=== PATIENT | female | born 1965 | race Caucasian/White ===

== ENCOUNTER 2017-03-01 11:36 | Emergency (ER) | payer OTHER ==
[~2017-03-01] VITALS: Ht 162.6 cm; Wt 87.1 kg
[2017-03-01 12:39] LABS: HEMATOCRIT 37.4 % (36.0-46.0); MCH 28.7 PG (29.0-34.0); MCHC 32.6 G/DL (30.0-36.0); MEAN PLAT.VOLUME 10.1 uM^3 (9.5-12.4); PLATELET COUNT 231 K/uL (156-360); RBC DIS.WIDTH-CV 12.1 % (11.8-14.6); RBC DIS.WIDTH-SD 38.7 % (39-53); RED BLOOD COUNT 4.25 M/uL (3.80-5.20); WHITE BLOOD COUNT 6.5 K/uL (4.1-10.2)
[2017-03-01 12:46] LABS: CHLORIDE 106 mEq/L (99-109); POTASSIUM 3.6 mEq/L (3.7-5.4); SODIUM 141 mEq/L (136-147)
[2017-03-01 12:49] LABS: GLUCOSE 95 mg/dL (70-99)
[2017-03-01 12:50] LABS: ANION GAP 13 MEQ/L (2-14)
[2017-03-01 12:51] LABS: TOTAL BILIRUBIN 0.3 mg/dL (0.0-1.0)
[2017-03-01 12:52] LABS: ALKALINE PHOSPHATASE 82 IU/L (3-129); GFR ESTIMATE (CALCULATED) > 59 mL/min/
[2017-03-01 12:53] LABS: UREA NITROGEN (BUN) 19 mg/dL (9-23)
[2017-03-01 12:56] LABS: LIPASE 35 U/L (1.0-51.0)
[2017-03-01 14:44] LABS: ADD MIUA? NO; BILIRUBIN NEGATIVE; BLOOD NEGATIVE; COLOR YELLOW ((YELLOW)); GLUCOSE (STRIP) NEGATIVE; KETONES 5; LEUKOCYTES NEGATIVE; NITRITE NEGATIVE; PROTEIN (STRIP) NEGATIVE; SPECIFIC GRAVITY 1.018 (1.000-1.030); UROBILINOGEN 0.2 MG/DL (0.2-1.0)
[2017-03-01] MEDS ORDERED: ZOFRAN ODT4 MG PO (15:16)
[2017-03-01] MEDS ORDERED: BENTYL10 MG PO (15:16)
[2017-03-01 15:35] VITALS: BP 129/95
== END 2017-03-01 15:59 | disposition home or self-care (01) ==
LOC: EME 11:36
PROVIDERS: Nurse Practitioner Family
DX: R10.9 Unspecified abdominal pain (principal); R11.0 Nausea; M54.5 Low back pain; R19.7 Diarrhea, unspecified; Z85.038 Personal history of other malignant neoplasm of large intestine; Z90.49 Acquired absence of other specified parts of digestive tract
CPT/HCPCS: 74177; 80053; 81003; 83690; 85027; 99281; 99285; J2270; J2405; J7030

== ENCOUNTER 2017-05-11 13:17 | Emergency (ER) | payer OTHER ==
[~2017-05-11] VITALS: Ht 162.6 cm; Wt 81.8 kg
[~2017-05-11 13:17] MED LIST: BENTYL10 MG PO; ZOFRAN ODT4 MG PO
[2017-05-11 14:25] LABS: ADD MIUA? YES; BILIRUBIN NEGATIVE; BLOOD SMALL; COLOR YELLOW ((YELLOW)); GLUCOSE (STRIP) NEGATIVE; KETONES 5; LEUKOCYTES NEGATIVE; NITRITE NEGATIVE; PROTEIN (STRIP) NEGATIVE; SPECIFIC GRAVITY 1.026 (1.000-1.030); UROBILINOGEN 0.2 MG/DL (0.2-1.0)
[2017-05-11 14:34] LABS: HEMATOCRIT 42.8 % (36.0-46.0); MCH 29.5 PG (29.0-34.0); MCHC 33.9 G/DL (30.0-36.0); MEAN PLAT.VOLUME 10.2 uM^3 (9.5-12.4); PLATELET COUNT 243 K/uL (156-360); RBC DIS.WIDTH-CV 12.4 % (11.8-14.6); RBC DIS.WIDTH-SD 39.5 % (39-53); RED BLOOD COUNT 4.92 M/uL (3.80-5.20); WHITE BLOOD COUNT 5.7 K/uL (4.1-10.2)
[2017-05-11 14:44] LABS: TROP-I INTERPRETATION NEGATIVE; TROPONIN-I < 0.01 ng/mL (0.0-0.30)
[2017-05-11 14:45] LABS: BACTERIA NONE SEEN /HPF; CALCIUM OXALATE CRYSTALS 4+ /HPF; EPITHELIAL CELLS RARE /HPF; MUCUS TRACE /LPF; RED BLOOD CELLS 0-5 /HPF (0-5); UCUL ADDED? NO; WHITE BLOOD CELLS 0-5 /HPF (0-5)
[2017-05-11 14:45] LABS: CHLORIDE 104 mEq/L (99-109); POTASSIUM 3.9 mEq/L (3.7-5.4); SODIUM 138 mEq/L (136-147)
[2017-05-11 14:47] LABS: GLUCOSE 100 mg/dL (70-99)
[2017-05-11 14:49] LABS: ANION GAP 13 MEQ/L (2-14); TOTAL BILIRUBIN 0.4 mg/dL (0.0-1.0)
[2017-05-11 14:51] LABS: ALKALINE PHOSPHATASE 107 IU/L (3-129); GFR ESTIMATE (CALCULATED) > 59 mL/min/
[2017-05-11 14:52] LABS: UREA NITROGEN (BUN) 18 mg/dL (9-23)
[2017-05-11 15:02] LABS: QUANTITATIVE HCG < 4.0 MIU/ML
[2017-05-11 16:44] LABS: MAGNESIUM 2.3 mg/dL (1.3-2.7)
[2017-05-11] MEDS ORDERED: MOTRIN800 MG PO (19:43)
[2017-05-11] MEDS ORDERED: ZOFRAN ODT4 MG PO (19:43)
[2017-05-11] MEDS ORDERED: ULTRAM50 MG PO (19:43)
[2017-05-11 20:03] VITALS: BP 132/98
== END 2017-05-11 20:05 | disposition home or self-care (01) ==
LOC: EME 13:17
DX: R07.1 Chest pain on breathing (principal); K52.9 Noninfective gastroenteritis and colitis, unspecified; Z85.038 Personal history of other malignant neoplasm of large intestine; Z87.442 Personal history of urinary calculi
CPT/HCPCS: 71020; 80053; 81003; 83735; 84484; 84702; 85027; 93005; 99281; 99284; J2405; J7030